=== PATIENT | male | born 1975 | race Caucasian/White ===

== ENCOUNTER 2016-12-26 11:50 | Emergency (ER) | payer OTHER ==
[2016-12-26 11:58] VITALS: TEMP 97.9
--- NOTE | 2016-12-26 13:06 | EDPHY ---
H & P Time Seen by Provider: 12/26/16 12:24 HPI/ROS: CHIEF COMPLAINT: Laceration left arm HISTORY OF PRESENT ILLNESS: 41-year-old male presents to the emergency department with a laceration to the left arm. The patient was using a slab grinder and it kicked back and cut him in the left forearm. The incident happened just prior to arrival. He is unsure of his last tetanus shot. He is right-hand dominant. ROS: Denies numbness or tingling in his fingers, retained foreign body or other injury. Past Medical/Surgical History: Back pain Social History: Single, works as an aircraft electrician Smoking Status: Never smoked Physical Exam: On examination the patient has a 2.5 cm laceration to the medial, mid left forearm. No evidence of retained foreign body. No palpable bony tenderness. Full range of motion of the left upper extremity. Normal sensation to light touch with normal 2 point discrimination. Strong radial pulse at the left wrist. Constitutional: Initial Vital Signs Temperature (C) 36.6 C 12/26/16 11:56 Heart Rate 84 12/26/16 11:56 Respiratory Rate 16 12/26/16 11:56 Blood Pressure 132/92 H 12/26/16 11:56 O2 Sat (%) 98 12/26/16 11:56 O2 Delivery Mode Room Air Allergies/Adverse Reactions: No Known Allergies Allergy (Unverified 12/26/16 11:55) Home Medications: Medication Instructions Recorded Oxycodone HCl 12/26/16 MDM/Departure - MDM Procedures: Laceration repair. Verbal consent was obtained from the patient. The 2.5 cm laceration on the left forearm was anesthetized using 1% lidocaine with epinephrine. The wound was irrigated with saline, draped and explored to its base with a gloved finger. There were no deep structures involved. No tendon injury was identified. The wound was repaired with 4 0 Ethilon, 6 sutures. The wound repair was simple. The procedure was performed by myself. Medications Given: Discontinued Medications Diphtheria/Tetanus/Acell Pertussis (Boostrix) 0.5 ml IM .ONCE ONE Stop: 12/26/16 13:19 Last Admin: 12/26/16 13:20 Dose: 0.5 ml ED Course/Re-evaluation: Patient was given a tetanus shot today. The laceration to the left forearm was repaired, see procedure note. Patient was given wound care precautions. - Depart Disposition: Home, Routine, Self-Care Clinical Impression: Laceration of left upper arm Qualifiers: Encounter type: initial encounter Qualified Code(s): S41.112A - Laceration without foreign body of left upper arm, initial encounter Condition: Good Instructions: Care For Your Stitches (ED), Laceration (ED), Acute Wounds (ED) Additional Instructions: Wound Care Follow-Up: Removal of sutures in 10 days. Suture removal is complimentary in uncomplicated cases. Infection or abnormal findings would require reevaluation by the MD. In that case, you may be billed. Return if you notice any signs or symptoms of infection such as redness, swelling, increased pain, fever, purulent drainage. Referrals: Korey Mca MD [Medical Doctor] - 2-3 days, if not improved (Primary care provider neonatal intensive care nurse)
[2016-12-26] MEDS ORDERED: TDAP ADULT 0.5 ML INJ (BOOSTRIX) IM ONE (13:18)
[2016-12-26 13:26] VITALS: BP 128/76; PULSE 75; RESP 18; O2SAT 97
== END 2016-12-26 13:27 | disposition home or self-care (01) ==
DX: S41.112A Laceration without foreign body of left upper arm, initial encounter (principal); Z23 Encounter for immunization; W31.2XXA Contact with powered woodworking and forming machines, initial encounter